=== PATIENT | female | born 1950 | race Caucasian/White ===

== ENCOUNTER 2022-06-07 16:11 | Emergency (ER) | payer OTHER, SELFPAY ==
--- NOTE | ~2022-06-07 | XR_ITS ---
EXAMINATION: DORSAL SPINE SERIES LUMBOSACRAL SPINE SERIES CLINICAL INFORMATION: Back pain COMPARISON: None TECHNIQUE: 2 views of the dorsal spine. 3 views lumbar sacral spine. FINDINGS: Dorsal spine: Vertebral bodies normally aligned with normal height. No fracture. Multilevel degenerative disc changes manifested by endplate osteophytes at multiple levels. Surrounding bone and soft tissues unremarkable. Lumbar sacral spine: Vertebral bodies normally aligned with normal height. Multilevel facet arthrosis. Multilevel degenerative disc changes with some endplate osteophyte formation. There is a prominent calcification or ossification along the anterior lateral aspect of the lumbar sacral spine at the L1-L2 level most likely reflecting a prominent syndesmophyte. No abnormality in the partially visualized lumbar sacral spine.. XR/XR thoracic spine 2V IMPRESSION: 1. No acute abnormality. 2. Multilevel spondylosis of the thoracolumbar spine. 3. Multilevel lumbar sacral spine facet arthrosis. 4. Prominent calcification or ossification likely reflecting a prominent syndesmophyte related to spondylosis of the spine..
--- NOTE | ~2022-06-07 | XR_ITS ---
EXAMINATION: DORSAL SPINE SERIES LUMBOSACRAL SPINE SERIES CLINICAL INFORMATION: Back pain COMPARISON: None TECHNIQUE: 2 views of the dorsal spine. 3 views lumbar sacral spine. FINDINGS: Dorsal spine: Vertebral bodies normally aligned with normal height. No fracture. Multilevel degenerative disc changes manifested by endplate osteophytes at multiple levels. Surrounding bone and soft tissues unremarkable. Lumbar sacral spine: Vertebral bodies normally aligned with normal height. Multilevel facet arthrosis. Multilevel degenerative disc changes with some endplate osteophyte formation. There is a prominent calcification or ossification along the anterior lateral aspect of the lumbar sacral spine at the L1-L2 level most likely reflecting a prominent syndesmophyte. No abnormality in the partially visualized lumbar sacral spine.. XR/XR lumbar spine 2-3V IMPRESSION: 1. No acute abnormality. 2. Multilevel spondylosis of the thoracolumbar spine. 3. Multilevel lumbar sacral spine facet arthrosis. 4. Prominent calcification or ossification likely reflecting a prominent syndesmophyte related to spondylosis of the spine..
[2022-06-07 16:21] VITALS: BP 156/87; BP 178/82; PULSE 88; PULSE 90; RESP 18; TEMP 36.7; O2SAT 98; BMI 42.5
[2022-06-07] MEDS: predniSONE 20 MG TABLET 40 MG PO (18:06)
[2022-06-07] MEDS: Cyclobenzaprine HCl 10 MG TABLET PO (18:06)
[2022-06-07] MEDS: oxyCODONE HCl Immed Release 5 MG TABLET PO (18:06)
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
[2022-06-07] MEDS: diazePAM 2 MG TABLET 5 MG PO (19:54)
== END 2022-06-07 21:07 | disposition home or self-care (01) ==
PROVIDERS: Emergency Provider Emergency Medicine Emergency Medical Services; PCP Internal Medicine
DX: M54.50 Low back pain, unspecified (principal); M54.6 Pain in thoracic spine; Z79.899 Other long term (current) drug therapy
CPT/HCPCS: 72070; 72100; 99283

== ENCOUNTER 2022-07-13 17:25 | Emergency (ER) | payer MEDICARE, SELFPAY ==
--- NOTE | ~2022-07-13 | US_ITS ---
EXAMINATION: US VENOUS ULTRASOUND WITH DOPPLER LOWER EXTREMITY, RIGHT CLINICAL INFORMATION: Right leg pain and swelling with history of DVT COMPARISON: None TECHNIQUE: Ultrasound of the deep veins is performed from the hip to the calf with compression sonography and color and pulse Doppler assessment. Spectral analysis with color-flow imaging is performed. FINDINGS: There is normal venous compression and respiratory variation and augmented flow. The visualized common femoral vein, superficial femoral vein, profunda femoral vein, popliteal vein, and the trifurcation region shows no evidence of deep venous thrombosis. There is no significant popliteal fossa cyst. The contralateral left common femoral vein also appears normal. If the patient's symptoms persist, followup ultrasound in 5 days 7 days might be of value to exclude proximal propagation from a non-visualized calf vein. US/US venous duplex LE RT IMPRESSION: No DVT demonstrated in the right lower extremity.
--- NOTE | ~2022-07-13 | XR_ITS ---
EXAMINATION: XR KNEE, RIGHT CLINICAL INFORMATION: Swelling of the knee. COMPARISON: None TECHNIQUE: Four views of the right knee. FINDINGS: No fracture. No dislocation. No suspicious focal bone lesion or abnormal periosteal reaction. Moderate tricompartment degenerative change of joint narrowing and marginal bone spurs. The most significant degenerative change at the medial femoral tibial joint. No significant joint effusion. XR/XR knee RT 4V IMPRESSION: 1. No acute abnormality. 2. Degenerative joint disease.
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
[2022-07-13 17:29] VITALS: PULSE 101; RESP 18; TEMP 36.5; O2SAT 95; BMI 43.0
[2022-07-13 17:43] LABS: MANUAL DIFF FLAG NO
[2022-07-13 17:49] LABS: Basophils Percent Auto 0.3 % (0-2); Eosinophils Absolute Auto 0.1 X10*3/uL (0.0-0.4); Hematocrit 40.6 % (37.0-47.0); Hemoglobin 12.9 g/dl (12.0-16.0); Imm Gran Abs Auto 0.04 X10*3/uL (0.00-0.03); Imm Gran Pct Auto 0.4 % (0.0-0.4); Lymphocytes Absolute Auto 2.3 X10*3/uL (1.2-4.9); Lymphocytes Percent Auto 24.1 % (20-40); Mean Corpuscular HGB Conc 31.8 g/dl (31.0-35.0); Mean Corpuscular Hemoglobin 29.7 pg (27.0-33.0); Mean Corpuscular Volume 93.3 fL (80.0-98.0); Mean Platelet Volume 9.8 fL (9.4-12.3); Monocytes Absolute Auto 0.6 X10*3/uL (0.1-1.2); Monocytes Percent Auto 5.8 % (2-11); Neutrophils Absolute Auto 6.6 x10*3/uL (2.0-8.3); Neutrophils Percent Auto 68.4 % (45-73); Platelet Count 274 X10*3/uL (160-400); Red Blood Count 4.35 X10*6/uL (4.20-5.50); Red Cell Distribution Width 15.8 % (11.0-16.0); White Blood Count 9.7 X10*3/uL (4.8-10.8)
[2022-07-13 18:00] VITALS: BP 153/71; PULSE 81; RESP 16; TEMP 36.8; O2SAT 95
[2022-07-13 18:03] LABS: Alanine Aminotransferase 18 U/L (0-31); Alkaline Phosphatase 60 U/L (39-117); Anion Gap 11 (12-20); Aspartate Amino Transferase 18 U/L (5-31); Bilirubin Total 0.3 mg/dL (0.0-1.0); Blood Urea Nitrogen 18 mg/dL (9-16); Calcium 8.9 mg/dL (8.4-10.2); Carbon Dioxide 33 mmol/L (22-29); Chloride 103 mmol/L (96-108); Creatinine Clr Calc Pharmacy 78.2; Estimated Glomerular Filt Rate > 60; Glucose Random 168 mg/dL (60-115); INTERNATIONAL NORM RATIO 1.1 (0.9-1.1); Potassium 3.9 mmol/L (3.3-5.1); Prothrombin Time 12.1 SEC (10.0-13.1); Sodium 143 mmol/L (135-145); Total Protein 6.5 g/dL (6.5-8.0)
[2022-07-13] MEDS: Acetaminophen 325 MG TABLET 650 MG PO (19:19)
== END 2022-07-13 19:27 | disposition home or self-care (01) ==
PROVIDERS: Nurse Practitioner Family; Emergency Provider Student in an Organized Health Care Education/Training Program; PCP Internal Medicine
DX: M79.661 Pain in right lower leg (principal); R60.0 Localized edema; M25.561 Pain in right knee; Z79.899 Other long term (current) drug therapy
CPT/HCPCS: 36415; 73564; 80053; 85025; 85610; 93971; 99283; 99284